=== PATIENT | male | born 1980 | race Caucasian/White ===

== ENCOUNTER 2017-04-29 21:10 | Emergency (ER) | payer SELFPAY ==
[~2017-04-29] VITALS: Ht 188 cm; Wt 93.0 kg
[2017-04-29] MEDS ORDERED: ONDANSETRON 4 MG TAB.RAPDIS ONE (22:23)
[2017-04-29] MEDS ORDERED: FAMOTIDINE (20 MG) 20 MG TABLET ONE (22:23)
[2017-04-29] MEDS ORDERED: FAMOTIDINE (20 MG) 20 MG TABLET PO ONE (22:30)
[2017-04-29] MEDS ORDERED: ONDANSETRON 4 MG TAB.RAPDIS SL ONE (22:30)
== END 2017-04-29 22:32 | disposition home or self-care (01) ==
LOC: ER 21:12
DX: A08.4 Viral intestinal infection, unspecified (principal)
CPT/HCPCS: 99283; A4606; Q0162; Z7610